=== PATIENT | female | born 1995 | race Caucasian/White ===

== ENCOUNTER 2018-12-23 05:15 | Emergency (ER) | payer BC ==
[2018-12-23] MEDS ORDERED: KETOROLAC 30 MG/ML VIAL IM ONE (05:34)
--- NOTE | 2018-12-23 05:39 | Emergency Department Record ---
History of Present Illness - General Chief complaint: Sunburn Stated complaint: sunburn Time Seen by Provider: 12/23/18 05:26 Source: Patient Mode of Arrival: Ambulatory Limitations: No limitations - History of Present Illness Initial comments: The patient is here due to having a bad sunburn for the last 3 days. She now is having persistent pain to her lower legs and slight swelling. The patient denies any trauma, fever, chills, vomiting, or diarrhea. She has been using Motrin for the pain and Aloe cream on the legs. MD Complaint: Burn Onset/Timin -: Days(s) Smoke Inhalation: None Location: Other Severity: Mild Severity scale (1-10): 4 Treatment Prior to Arrival: Analgesic, Other Treatment Prior to Arrival Comment:: motrin and aloe - Related Data Home Medications Medication Instructions Recorded Confirmed Last Taken Norgestimate-Ethinyl Estradiol 1 tab PO DAILY 12/23/18 12/23/18 Unknown [Norg-Ethin Estra 0.25-0.035 mg] Sertraline HCl [Zoloft] 25 mg PO DAILY 12/23/18 12/23/18 Unknown Zonisamide 50 mg PO DAILY 12/23/18 12/23/18 Unknown Previous Rx's Medication Instructions Recorded Naproxen [Naprosyn] 500 mg PO BID #14 tablet. 12/23/18 Prednisone [Prednisone 20Mg] 40 mg PO DAILY #8 tab 12/23/18 Allergies Allergy/AdvReac Type Severity Reaction Status Date / Time No Known Drug Allergies Allergy Verified 12/23/18 05:22 Travel Screening - Travel/Exposure Within Last 30 Days Have you traveled within the last 30 days?: No - Travel/Exposure Within Last Year Have you traveled outside the [place] in the last year?: No - Additonal Travel Details Have you been exposed to anyone with a communicable illness?: No - Travel Symptoms Symptom Screening: None Review of Systems Constitutional: Denies: Chills, Fever Eyes: Denies: Eye discharge ENT: Denies: Congestion Respiratory: Denies: Cough, Dyspnea Past Medical History - SOCIAL HISTORY Smoking Status: Never smoker Alcohol Use: Rare Drug Use: None - RESPIRATORY Hx Respiratory Disorders: No - CARDIOVASCULAR Hx Cardio Disorders: No - NEURO Hx Neuro Disorders: No - GI Hx GI Disorders: No - Hx Genitourinary Disorders: No - ENDOCRINE Hx Endocrine Disorders: No - MUSCULOSKELETAL Hx Musculoskeletal Disorders: No - PSYCH Hx Psych Problems: Yes Hx Anxiety: Yes Hx Depression: Yes - HEMATOLOGY/ONCOLOGY Hx Hematology/Oncology Disorders: No Family Medical History Any Significant Family History?: No Physical Exam - General General Appearance: Alert, Oriented x3, Cooperative, No acute distress - Head Head exam: Atraumatic, Normocephalic, Normal inspection - Eye Eye exam: Normal appearance - ENT ENT exam: negative: Normal exam (There is a mild sunburn to the face.) - Neck Neck exam: Normal inspection, Full ROM. negative: Tenderness - Respiratory Respiratory exam: Normal lung sounds bilaterally. negative: Respiratory distress - Cardiovascular Cardiovascular Exam: Regular rate, Normal rhythm, Normal heart sounds - GI/Abdominal GI/Abdominal exam: Soft, Normal bowel sounds. negative: Tenderness - Extremities Extremities exam: Full ROM, Tenderness. negative: Normal inspection (There is well demarcated erythema to the anterior bilateral lower legs consistent with a sunburn. There is no blistering but there is mild anterior lower leg edema with tenderness over the sunburn.), Joint swelling Image of Full Body: 1 - Well demarcated sunburn. 2 - Sunburn first degree. 3 - Sunburn first degree. - Neurological Neurological exam: Alert, Normal gait. negative: Abnormal gait, Motor sensory deficit Course Vital Signs 12/23/18 05:18 Temperature 99.0 F Pulse Rate 110 H Respiratory 20 Rate Blood Pressure 123/84 Pulse Ox 98 - Reevaluation(s) Reevaluation #1: I did discuss the plan with the patient. Due to the pain and inflammation I will give the patient a dose of Solu-medrol here and Prednisone starting tomorrow. She is to take Naprosyn for pain along with Tylenol and is to see her PCP tomorrow to have the legs rechecked. I did discuss the contaminated urine with the patient and did recommend rechecking with a catheterized specimen but she did refuse that. She states she has no urinary symptoms and I only actually ordered it to evaluate for any protein in the urine. She was then instructed to have it rechecked tomorrow. 12/23/18 06:55 Medical Decision Making - Lab Data Result diagrams: 12/23/18 06:01 12/23/18 06:01 Disposition Disposition: Discharge Clinical Impression: Sunburn of first degree Disposition: Home, Self-Care Condition: (2) Stable Instructions: Sunburn (ED) Additional Instructions: Please take the Naprosyn for pain along with Tylenol and start the Prednisone tomorrow. Please drink plenty of fluids and please have the legs rechecked with your a doctor tomorrow. Return to the ER for any worsening symptoms or fevers. Prescriptions: Naproxen [Naprosyn] 500 mg PO BID #14 tablet. Prednisone [Prednisone 20Mg] 40 mg PO DAILY #8 tab Forms: Patient Portal Access Time of Disposition: 07:01 Quality - Quality Measures Quality Measures: N/A - Blood Pressure Screening View Details: Yes Does Patient Have Any of the Following: No Blood Pressure Classification: Pre-Hypertensive BP Reading Systolic Measurement: 123 Diastolic Measurement: 84 Screening for High Blood Pressure: < Pre-Hypertensive BP, F/U Documented > [G8950] Pre-Hypertensive Follow-up Interventions: Referral to alternative/primary care provider.
[2018-12-23 06:14] LABS: ABSOLUTE NEUTROPHIL COUNT 8.86; BASO % 0.2 % (0-6); EOS % 0.8 % (0-6); GRAN % 68.1 % (47-80); HEMATOCRIT 41.8 % (35.0-47.0); HEMOGLOBIN 13.9 gm/dl (11.6-16.0); LYMPH % 23.3 % (16-45); MEAN CELL VOLUME 84.8 fl (81-97); MEAN CORPUSCULAR HEMOGLOBIN 28.2 pg (27-33); MEAN CORPUSCULAR HGB CONC 33.3 g/dl (32-36); MONO % 7.6 % (0-9); PLATELET COUNT 511 K/uL (130-400); RED BLOOD COUNT 4.93 M/uL (3.80-5.40); RED CELL DISTRIBUTION WIDTH 13.2 % (11.5-14.5)
[2018-12-23 06:20] LABS: URINE APPEARANCE CLEAR; URINE BILIRUBIN NEGATIVE (NEGATIVE); URINE BLOOD NEGATIVE (NEGATIVE); URINE COLOR YELLOW; URINE GLUCOSE (UA) NEGATIVE (NEGATIVE); URINE KETONE NEGATIVE (NEGATIVE); URINE LEUKOCYTE ESTERASE SMALL (NEGATIVE); URINE NITRITE NEGATIVE (NEGATIVE); URINE PROTEIN NEGATIVE (NEGATIVE)
[2018-12-23 06:27] LABS: BLOOD UREA NITROGEN 14 mg/dL (6-20)
[2018-12-23 06:28] LABS: CREATININE 0.9 mg/dL (0.5-0.9); EST GLOMERULAR FILTRATION RATE > 60 mL/min; TOTAL PROTEIN 7.1 g/dL (6.6-8.7)
[2018-12-23 06:30] LABS: GLUCOSE,RANDOM 124 mg/dL (74-109)
[2018-12-23 06:33] LABS: ALB/GLOB RATIO 1.1 (1.1-1.8); ALBUMIN 3.7 g/dL (4.0-5.0); ALKALINE PHOSPHATASE 107 U/L (35-104); ALT/SGPT 23 U/L (<33); C-REACTIVE PROTEIN 7.84 mg/dL (<0.5)
[2018-12-23 06:43] LABS: AST/SGOT 18 U/L (10.0-35.0)
[2018-12-23 06:48] LABS: URINE RBC 0 - 2 (NONE SEEN); URINE SQUAMOUS EPITHELIAL CELL 16 - 20 /hpf
[2018-12-23 06:49] LABS: HCG,QUALITATIVE URINE NEGATIVE (NEGATIVE); URINE BACTERIA 4+
[2018-12-23] MEDS ORDERED: METHYLPREDNISOLONE PF 125MG/VIAL IM ONE (06:51)
== END 2018-12-23 07:16 | disposition home or self-care (01) ==
LOC: ER 05:15
DX: L50.0 Allergic urticaria (principal); R60.0 Localized edema; M79.605 Pain in left leg; M79.604 Pain in right leg
CPT/HCPCS: 80053; 81001; 81025; 85025; 86140; 96372; 99283; 99284; J1885; J2930

== ENCOUNTER 2018-12-27 22:18 | Emergency (ER) | payer BC ==
[2018-12-28] MEDS ORDERED: KETOROLAC 30 MG/ML VIAL IM ONE (02:05)
[2018-12-28] MEDS ORDERED: SILVER SULFADIAZINE 25 GM CREAM TOP ONE (02:07)
[2018-12-28] MEDS ORDERED: CEPHALEXIN 500 MG CAPSULE PO STA (02:21)
--- NOTE | 2018-12-28 02:22 | Emergency Department Record ---
History of Present Illness - General Chief complaint: Sunburn Stated complaint: SUNBURN Time Seen by Provider: 12/28/18 01:59 Source: Patient Mode of Arrival: Ambulatory Limitations: No limitations - History of Present Illness Initial comments: pt got a severe sunburn on 12/20. she was seen on 12/23 and was given steroids. she feels it has gotten worse on her legs w blistering, discoloration and increased redness and oozing. Complaint: Burn -: Days(s) Place: Outdoors Location - Extremities: Left: Thigh, Knee, Lower Leg, Right: Thigh, Knee, Lower Leg Severity scale (1-10): 4 Treatment Prior to Arrival Comment:: pt reports using aloe - Related Data Previous Rx's Medication Instructions Recorded Naproxen [Naprosyn] 500 mg PO BID #14 tablet. 12/23/18 Cephalexin [Keflex] 500 mg PO TID #30 cap 12/28/18 Allergies Allergy/AdvReac Type Severity Reaction Status Date / Time No Known Drug Allergies Allergy Verified 12/28/18 00:55 Travel Screening - Travel/Exposure Within Last 30 Days Have you traveled within the last 30 days?: No Review of Systems Reviewed: No additional complaints except as noted below Constitutional: Reports: As per HPI. Denies: Chills, Fever, Malaise, Night sweats, Weakness, Weight change Eyes: Reports: As per HPI. Denies: Eye discharge, Eye pain, Photophobia, Vision change ENT: Reports: As per HPI. Denies: Congestion, Dental pain, Ear pain, Epistaxis, Hearing loss, Throat pain Respiratory: Reports: As per HPI. Denies: Cough, Dyspnea, Hemoptysis, Stridor, Wheezes Cardiovascular: Reports: As per HPI. Denies: Arrhythmia, Chest pain, Dyspnea on exertion, Edema, Murmurs, Orthopnea, Palpitations, Paroxysmal nocturnal dyspnea, Rheumatic Fever, Syncope Endocrine: Reports: As per HPI. Denies: Fatigue, Heat or cold intolerance, Polydipsia, Polyuria Gastrointestinal: Reports: As per HPI. Denies: Abdominal pain, Constipation, Diarrhea, Hematemesis, Hematochezia, Melena, Nausea, Vomiting Genitourinary: Reports: As per HPI. Denies: Abnormal menses, Discharge, Dyspareunia, Dysuria, Frequency, Hematuria, Incontinence, Retention, Urgency Musculoskeletal: Reports: As per HPI. Denies: Arthralgia, Back pain, Gout, Joint swelling, Myalgia, Neck pain Skin: Reports: As per HPI. Denies: Bruising, Change in color, Change in hair/nails, Lesions, Pruritus, Rash Neurological: Reports: As per HPI. Denies: Abnormal gait, Confusion, Headache, Numbness, Paresthesias, Seizure, Tingling, Tremors, Vertigo, Weakness Psychiatric: Reports: As per HPI. Denies: Anxiety, Auditory hallucinations, Depression, Homicidal thoughts, Suicidal thoughts, Visual hallucinations Hematological/Lymphatic: Reports: As per HPI. Denies: Anemia, Blood Clots, Easy bleeding, Easy bruising, Swollen glands Past Medical History - SOCIAL HISTORY Smoking Status: Never smoker Alcohol Use: None Drug Use: None - RESPIRATORY Hx Respiratory Disorders: No - CARDIOVASCULAR Hx Cardio Disorders: No - NEURO Hx Neuro Disorders: No - GI Hx GI Disorders: No - Hx Genitourinary Disorders: No - ENDOCRINE Hx Endocrine Disorders: No - MUSCULOSKELETAL Hx Musculoskeletal Disorders: No - PSYCH Hx Psych Problems: Yes Hx Anxiety: Yes Hx Depression: Yes - HEMATOLOGY/ONCOLOGY Hx Hematology/Oncology Disorders: No Family Medical History Any Significant Family History?: No Physical Exam - General General Appearance: Alert, Oriented x3, Cooperative, No acute distress - Head Head exam: Normal inspection - Eye Eye exam: Normal appearance, PERRL, EOMI Pupils: Normal accommodation - ENT ENT exam: Normal exam, Mucous membranes moist, Normal external ear exam, Normal orophraynx Ear exam: Normal external inspection. negative: External canal tenderness Nasal Exam: Normal inspection. negative: Discharge, Sinus tenderness Mouth exam: Normal external inspection, Tongue normal Teeth exam: Normal inspection. negative: Dental caries Throat exam: Normal inspection. negative: Tonsillar erythema, Tonsillar exudate - Neck Neck exam: Normal inspection, Full ROM. negative: Tenderness - Respiratory Respiratory exam: Normal lung sounds bilaterally. negative: Respiratory distress - Cardiovascular Cardiovascular Exam: Regular rate, Normal rhythm, Normal heart sounds - GI/Abdominal GI/Abdominal exam: Soft, Normal bowel sounds. negative: Tenderness - Rectal Rectal exam: Deferred - exam: Deferred - Extremities Extremities exam: Full ROM, Normal capillary refill, Tenderness. negative: Normal inspection - Back Back exam: Reports: Normal inspection, Full ROM. Denies: Muscle spasm, Rash noted, Tenderness - Neurological Neurological exam: Alert, CN II-XII intact, Normal gait, Oriented X3 - Psychiatric Psychiatric exam: Normal affect, Normal mood - Skin Skin exam: Dry, Erythema, Intact, Normal color, Warm Type of lesion: Rash Distribution of rash: RLE, LLE Description of rash: Blisters, Bullous, Crusting, Discharge, Purpuic, Swelling, Tenderness Course Vital Signs 12/28/18 00:50 Temperature 99.0 F Pulse Rate 81 Respiratory 16 Rate Blood Pressure 126/92 Pulse Ox 99 Disposition Disposition: Discharge Clinical Impression: Sunburn, second degree Disposition: Home, Self-Care Condition: (1) Good Instructions: Sunburn (ED) Additional Instructions: follow up with family doctor, return sooner if worse. use sunblock. motrin for pain Prescriptions: Cephalexin [Keflex] 500 mg PO TID #30 cap Quality - Quality Measures Quality Measures: N/A - Blood Pressure Screening Does Patient Have Any of the Following: No Blood Pressure Classification: Hypertensive Reading Systolic Measurement: 126 Diastolic Measurement: 92 Screening for High Blood Pressure: < Pre-Hypertensive BP, F/U Documented > [G8950] Pre-Hypertensive Follow-up Interventions: Follow-up with rescreen every year.
[2018-12-28] MEDS ORDERED: BACITRACIN 14 GM TUBE TOP SCH (10:00)
== END 2018-12-28 03:01 | disposition home or self-care (01) ==
LOC: ER 22:18
DX: L55.1 Sunburn of second degree (principal)
CPT/HCPCS: 96372; 99283; J1885